=== PATIENT | female | born 1980 ===

== ENCOUNTER 2020-09-24 15:28 | Emergency (ER) | payer MEDICAID, SELFPAY ==
--- NOTE | ~2020-09-24 | CT_ITS ---
EXAMINATION: CT HEAD WITHOUT CONTRAST CLINICAL INFORMATION: Worsening seizures and multiple falls. COMPARISON: None TECHNIQUE: Contiguous axial imaging was performed from the skull base to vertex without intravenous administration of contrast. This CT examination was performed using dose optimization techniques as appropriate, variously including the following: *Automated exposure control *Adjustment of mA and/or kV according to patient size (this includes techniques or standardized protocols for targeted exams where dose is matched to indication/reason for exam; i.e. extremities or head) *Use of iterative reconstruction technique DLP: 653 mGy-cm FINDINGS: There is no evidence of acute intracranial hemorrhage or territorial infarction. No abnormal mass effect or midline shift is seen. Mccurdy to white matter differentiation is well preserved. No extra-axial fluid collections are identified. The ventricles are normal in size. There is no abnormal attenuation within the brain parenchyma. The osseous structures and soft tissues are normal. The mastoid air cells and visualized portions of the paranasal sinuses are well aerated. CT/CT head/brain wo con IMPRESSION: No acute intracranial process seen.
[2020-09-24 15:33] VITALS: BP 127/89; PULSE 117; RESP 22; TEMP 36.6; O2SAT 98; BMI 32.0
[2020-09-24 16:06] VITALS: BP 130/81; PULSE 111; RESP 18; O2SAT 97
--- NOTE | 2020-09-24 16:20 | ECG_ITS ---
Test Reason : SEIZURE Blood Pressure : / mmHG Vent. Rate : 108 BPM Atrial Rate : 108 BPM P-R Int : 118 ms QRS Dur : 078 ms QT Int : 358 ms P-R-T Axes : 050 049 045 degrees QTc Int : 479 ms Sinus tachycardia Otherwise normal ECG When compared with ECG of 07-MAY-2019 02:00, No significant change was found Referred By: Brooke Ku Electronically Signed By:ELADIO GILMAN MD
--- NOTE | 2020-09-24 16:23 | ED.SEIZURE ---
HPI - Seizure General Chief Complaint: Seizure Stated Complaint: seizure Time Seen by Provider: 09/24/20 15:57 Source: patient Mode of arrival: ambulatory Limitations: no limitations History of Present Illness HPI Narrative: Patient is brought by her PASSENGER SERVICE AGENT to the emergency room. Patient states that she is known to have epileptic seizures. Patient states she had a seizure a month ago, then had a 2nd seizure 1 week ago, but today she had 3 seizures. The PASSENGER SERVICE AGENT states that while patient was still seizing, he was able to give the patient 100 mg of oral Topamax. The PASSENGER SERVICE AGENT call the patient's neurologist who is at [facility], who recommended to bring the patient to the hospital for further evaluation. The patient states that she is compliant with her medication. At this time, the patient denies any other complaints MD complaint: seizure Seizure History: Yes (on Topamax) Place: familys house Related Data Allergies Allergy/AdvReac Type Severity Reaction Status Date / Time latex [LATEX] Allergy Severe RASH Unverified 01/24/20 17:08 baclofen [BACLOFEN] Allergy Unknown MOUTH Unverified 01/24/20 17:08 SWELLING bactrim Allergy Unknown Uncoded 02/21/19 00:00 Latex Allergy Unknown Uncoded 06/21/19 00:00 Latex Gloves Allergy Unknown Uncoded 02/21/19 00:00 Review of Systems Review of Systems: Constitutional : No Weight loss, No Fever, No Chills, No Night Sweats, No Fatigue, No Malaise ENT/Mouth : No Hearing loss, No Ear Pain, No Nasal Congestion, No Sinus Pain, No Hoarseness, No sore throat, No Rhinorrhea, No Swallowing Difficulty Eyes: No Eye Pain, No Swelling, No Redness, No Foreign Body, No Discharge, No Vision Changes Cardiovascular : No Chest Pain, No SOB, No Dyspnea on Exertion, No Orthopnea, No Edema, No Palpitations Respiratory : No Cough, No Sputum, No Wheezing, No Smoke Exposure, No Dyspnea Gastrointestinal : No Nausea, No Vomiting, No Diarrhea, No Constipation, No abdominal Pain, No Hematochezia, No Melena Genitourinary : no irregular bleeding, No Dysuria, No Urinary Frequency, No Hematuria, No Urinary Incontinence, No Urgency, No Flank Pain, No Urinary Flow Changes, No Hesitancy Musculoskeletal : No joint pain, No Myalgias, No Joint Swelling Skin : No Skin Lesions, No rash Neuro : No Weakness, No Numbness, No Paresthesias, patient complaining headache and reports 3 seizures today Psych : No Anxiety/Panic, No Depression, No SI/HI/AH/VH, No Social Issues, Heme/Lymph: No Bruising, No Bleeding,No Lymphadenopathy Endocrine : No Polyuria, No Polydipsia, No Temperature Intolerance PMFSH Past Medical History Medical History Anxiety Asthma Depression Seizure Social History Social History Alcohol intake: never Smoking Status: Never smoker Use of substances other than those prescribed or required for medical reasons: No Advance Directives: No Advance Directives Information Provided: Yes Patient : No Physical Exam Vital Signs: Vital Signs: Last Vital Signs Temp 98.0 F 09/24/20 17:51 Pulse 101 H 09/24/20 17:51 Resp 19 09/24/20 17:51 BP 149/90 H 09/24/20 17:51 Pulse Ox 99 09/24/20 17:51 Body Mass Index 32.0 Appearance: Alert. Oriented X3. No acute distress. Eyes: Pupils equal, round and reactive to light. ENT: Pharynx normal. Neck: Normal inspection. Neck supple. No lymph nodes noted. No crepitus CVS: Normal heart rate and rhythm. Pulses normal. Normal S1 and S2 Respiratory: No respiratory distress. Breath sounds normal. No Wheezing. No rales Abdomen: Soft and nontender. No rigidity. No distention. good BS x4 Skin: Skin warm and dry. Normal skin color. Normal skin turgor. Extremities: No lower extremity edema. No lower extremity edema. No Lacerations. No Rash Neuro: Oriented X 3. No motor deficit. No sensory deficit. Moving all extermities. No slurred speech. Course Course Course Narrative: I was called to the patient's room to evaluate her for a seizure she had in the room. Patient actually had a pseudo-seizure. Lasted less than a minute, woke up immediately, no postictal period. Given history of the patient was actually able to swallow medication while she was seizing, plus the above-mentioned event, and the white blood cell count and lactic acid being normal, it is more likely that the patient had a pseudo-seizure. This was discussed with the patient and her PASSENGER SERVICE AGENT. Patient will be discharged home with no changes in her medication. MDM - Seizure Lab Data Result diagrams: 09/24/20 16:38 09/24/20 16:38 Labs: Lab Results 09/24/20 09/24/20 09/24/20 Range/Units 16:38 16:38 16:38 WBC 8.7 (4.8-10.8) X10*3/uL RBC 4.58 (4.20-5.50) X10*6/uL Hgb 11.9 L (12.0-16.0) g/dl Hct 37.8 (37-47) % MCV 82.5 (80-98) fL MCH 26.0 L (27.0-33.0) pg MCHC 31.5 (31.0-35.0) g/dl RDW 13.3 (11.0-16.0) % Plt Count 293 (160-400) X10*3/uL MPV 9.6 (9.4-12.3) fL Immature Gran % (Auto) 0.2 (0.0-0.4) % Neut % (Auto) 48.9 (45-73) % Lymph % (Auto) 38.7 (20-40) % [place] % (Auto) 9.0 (2-11) % Eos % (Auto) 2.6 (0-4) % Baso % (Auto) 0.6 (0-2) % Lymph # (Auto) 3.4 (1.2-4.9) X10*3/uL [place] # (Auto) 0.8 (0.1-1.2) X10*3/uL Eos # (Auto) 0.2 (0.0-0.4) X10*3/uL Baso # (Auto) 0.1 (0.0-0.2) X10*3/uL Abs Immat Gran (auto) 0.02 (0.00-0.03) X10*3/uL Absolute Neuts (auto) 4.3 (2.0-8.3) X10*3/uL Absolute Nucleated RBC 0.000 (0.0-0.012) X10*3/uL Nucleated RBC % (auto) 0.0 (0.0-0.2) /100WBC Sodium 135 (135-145) mmol/L Potassium 4.0 (3.3-5.1) mmol/L Chloride 104 (96-108) mmol/L Carbon Dioxide 22 (22-29) mmol/L Anion Gap 13 (12-20) BUN 10 (9-16) mg/dL Creatinine 1.22 (0.5-1.4) mg/dL Estim Creat Clear Calc 58.6 Estimated GFR 48 Random Glucose 95 (60-115) mg/dL Lactic Acid (0.5-2.0) mmol/L Calcium 8.7 (8.4-10.2) mg/dL Total Bilirubin 0.3 Cancelled (0.0-1.0) mg/dL Direct Bilirubin < 0.2 Cancelled (0.0-0.5) mg/dL AST 20 Cancelled (5-31) U/L ALT 17 Cancelled (0-31) U/L Alkaline Phosphatase 139 H Cancelled (39-117) U/L Total Protein 7.6 Cancelled (6.5-8.0) g/dL Albumin 3.9 Cancelled (3.5-5.0) g/dL Lipase 14 Cancelled (8-78) U/L Urine Color Urine Appearance Urine pH (5.0-8.0) Ur Specific [place] (1.005-1.025) Urine Protein (NEG-TRACE) MG/DL Urine Glucose (UA) (NEG) MG/DL Urine Ketones (NEG) MG/DL Urine Blood (NEG) Urine Nitrite (NEG) Ur Leukocyte Esterase (NEG) Urine RBC (0) /HPF Urine WBC (0-4) /HPF Ur Squamous Epith Cells /LPF Urine Bacteria /LPF Urine Test (NEGATIVE) Urine Opiates Screen (Not Detect) Ur Barbiturates Screen (Not Detect) Ur Phencyclidine Scrn (Not Detect) Ur Amphetamines Screen (Not Detect) U Benzodiazepines Scrn (Not Detect) Urine Cocaine Screen (Not Detect) U Marijuana (THC) Screen (Not Detect) 09/24/20 09/24/20 09/24/20 Range/Units 16:38 16:46 16:46 WBC (4.8-10.8) X10*3/uL RBC (4.20-5.50) X10*6/uL Hgb (12.0-16.0) g/dl Hct (37-47) % MCV (80-98) fL MCH (27.0-33.0) pg MCHC (31.0-35.0) g/dl RDW (11.0-16.0) % Plt Count (160-400) X10*3/uL MPV (9.4-12.3) fL Immature Gran % (Auto) (0.0-0.4) % Neut % (Auto) (45-73) % Lymph % (Auto) (20-40) % [place] % (Auto) (2-11) % Eos % (Auto) (0-4) % Baso % (Auto) (0-2) % Lymph # (Auto) (1.2-4.9) X10*3/uL [place] # (Auto) (0.1-1.2) X10*3/uL Eos # (Auto) (0.0-0.4) X10*3/uL Baso # (Auto) (0.0-0.2) X10*3/uL Abs Immat Gran (auto) (0.00-0.03) X10*3/uL Absolute Neuts (auto) (2.0-8.3) X10*3/uL Absolute Nucleated RBC (0.0-0.012) X10*3/uL Nucleated RBC % (auto) (0.0-0.2) /100WBC Sodium (135-145) mmol/L Potassium (3.3-5.1) mmol/L Chloride (96-108) mmol/L Carbon Dioxide (22-29) mmol/L Anion Gap (12-20) BUN (9-16) mg/dL Creatinine (0.5-1.4) mg/dL Estim Creat Clear Calc Estimated GFR Random Glucose (60-115) mg/dL Lactic Acid 1.7 (0.5-2.0) mmol/L Calcium (8.4-10.2) mg/dL Total Bilirubin (0.0-1.0) mg/dL Direct Bilirubin (0.0-0.5) mg/dL AST (5-31) U/L ALT (0-31) U/L Alkaline Phosphatase (39-117) U/L Total Protein (6.5-8.0) g/dL Albumin (3.5-5.0) g/dL Lipase (8-78) U/L Urine Color YELLOW Urine Appearance CLEAR Urine pH 8.0 (5.0-8.0) Ur Specific [place] 1.015 (1.005-1.025) Urine Protein NEG (NEG-TRACE) MG/DL Urine Glucose (UA) NEG (NEG) MG/DL Urine Ketones NEG (NEG) MG/DL Urine Blood NEG (NEG) Urine Nitrite NEG (NEG) Ur Leukocyte Esterase 1+ H (NEG) Urine RBC 0-2 (0) /HPF Urine WBC 5-9 H (0-4) /HPF Ur Squamous Epith Cells 2+ /LPF Urine Bacteria TRACE /LPF Urine Test NEGATIVE (NEGATIVE) Urine Opiates Screen (Not Detect) Ur Barbiturates Screen (Not Detect) Ur Phencyclidine Scrn (Not Detect) Ur Amphetamines Screen (Not Detect) U Benzodiazepines Scrn (Not Detect) Urine Cocaine Screen (Not Detect) U Marijuana (THC) Screen (Not Detect) 09/24/20 Range/Units 16:46 WBC (4.8-10.8) X10*3/uL RBC (4.20-5.50) X10*6/uL Hgb (12.0-16.0) g/dl Hct (37-47) % MCV (80-98) fL MCH (27.0-33.0) pg MCHC (31.0-35.0) g/dl RDW (11.0-16.0) % Plt Count (160-400) X10*3/uL MPV (9.4-12.3) fL Immature Gran % (Auto) (0.0-0.4) % Neut % (Auto) (45-73) % Lymph % (Auto) (20-40) % [place] % (Auto) (2-11) % Eos % (Auto) (0-4) % Baso % (Auto) (0-2) % Lymph # (Auto) (1.2-4.9) X10*3/uL [place] # (Auto) (0.1-1.2) X10*3/uL Eos # (Auto) (0.0-0.4) X10*3/uL Baso # (Auto) (0.0-0.2) X10*3/uL Abs Immat Gran (auto) (0.00-0.03) X10*3/uL Absolute Neuts (auto) (2.0-8.3) X10*3/uL Absolute Nucleated RBC (0.0-0.012) X10*3/uL Nucleated RBC % (auto) (0.0-0.2) /100WBC Sodium (135-145) mmol/L Potassium (3.3-5.1) mmol/L Chloride (96-108) mmol/L Carbon Dioxide (22-29) mmol/L Anion Gap (12-20) BUN (9-16) mg/dL Creatinine (0.5-1.4) mg/dL Estim Creat Clear Calc Estimated GFR Random Glucose (60-115) mg/dL Lactic Acid (0.5-2.0) mmol/L Calcium (8.4-10.2) mg/dL Total Bilirubin (0.0-1.0) mg/dL Direct Bilirubin (0.0-0.5) mg/dL AST (5-31) U/L ALT (0-31) U/L Alkaline Phosphatase (39-117) U/L Total Protein (6.5-8.0) g/dL Albumin (3.5-5.0) g/dL Lipase (8-78) U/L Urine Color Urine Appearance Urine pH (5.0-8.0) Ur Specific [place] (1.005-1.025) Urine Protein (NEG-TRACE) MG/DL Urine Glucose (UA) (NEG) MG/DL Urine Ketones (NEG) MG/DL Urine Blood (NEG) Urine Nitrite (NEG) Ur Leukocyte Esterase (NEG) Urine RBC (0) /HPF Urine WBC (0-4) /HPF Ur Squamous Epith Cells /LPF Urine Bacteria /LPF Urine Test (NEGATIVE) Urine Opiates Screen Not Detected (Not Detect) Ur Barbiturates Screen Not Detected (Not Detect) Ur Phencyclidine Scrn Not Detected (Not Detect) Ur Amphetamines Screen Not Detected (Not Detect) U Benzodiazepines Scrn Not Detected (Not Detect) Urine Cocaine Screen POSITIVE H (Not Detect) U Marijuana (THC) Screen Not Detected (Not Detect) ECG Data Attestation: I personally reviewed and interpreted this ECG as follows: (Sinus tachycardia, heart rate 108, no ST segment depression or elevation, no T-wave inversion) Discharge Plan Discharge Clinical Impression: Pseudoseizures Patient Disposition: Home, Self-Care Instructions: Recurrent Seizures in Adults (ED) Additional Instructions: Please follow-up with your primary care physician tomorrow. If you have any worsening or new symptoms, please return to the emergency room or call 911
[2020-09-24 16:29] VITALS: BP 125/74; PULSE 106; RESP 18; TEMP 37.1; O2SAT 99
[2020-09-24 16:43] LABS: MANUAL DIFF FLAG NO
[2020-09-24 16:47] LABS: Basophils Absolute Auto 0.1 X10*3/uL (0.0-0.2); Basophils Percent Auto 0.6 % (0-2); Eosinophils Absolute Auto 0.2 X10*3/uL (0.0-0.4); Eosinophils Percent Auto 2.6 % (0-4); Hematocrit 37.8 % (37-47); Hemoglobin 11.9 g/dl (12.0-16.0); Imm Gran Abs Auto 0.02 X10*3/uL (0.00-0.03); Imm Gran Pct Auto 0.2 % (0.0-0.4); Lymphocytes Absolute Auto 3.4 X10*3/uL (1.2-4.9); Lymphocytes Percent Auto 38.7 % (20-40); Mean Corpuscular HGB Conc 31.5 g/dl (31.0-35.0); Mean Corpuscular Volume 82.5 fL (80-98); Mean Platelet Volume 9.6 fL (9.4-12.3); Monocytes Absolute Auto 0.8 X10*3/uL (0.1-1.2); Neutrophils Absolute Auto 4.3 X10*3/uL (2.0-8.3); Neutrophils Percent Auto 48.9 % (45-73); Platelet Count 293 X10*3/uL (160-400); Red Blood Count 4.58 X10*6/uL (4.20-5.50); Red Cell Distribution Width 13.3 % (11.0-16.0); White Blood Count 8.7 X10*3/uL (4.8-10.8)
[2020-09-24 16:54] LABS: Glucose Urine UA NEG (NEG); Leukocyte Esterase Urine 1+ (NEG); Nitrite Urine NEG (NEG); Specific Gravity - Urine 1.015 (1.005-1.025); UACC Culture Trigger YES; Urine Blood NEG (NEG); Urine Ketones NEG (NEG); Urine Protein NEG (NEG-TRACE)
[2020-09-24 16:56] LABS: UPreg QC Valid YES; Urine Pregnancy NEGATIVE (NEGATIVE)
[2020-09-24 16:57] LABS: Appearance Urine CLEAR; Color Urine YELLOW
[2020-09-24 17:11] LABS: Bacteria Urine TRACE /LPF; RBC Urine 0-2 /HPF (0); Squamous Epithelial Cell Urine 2+ /LPF
[2020-09-24 17:16] LABS: Lactic Acid 1.7 mmol/L (0.5-2.0)
[2020-09-24 17:21] LABS: Amphetamine Screen Urine Not Detected (Not Detect); Barbiturates, Urine Not Detected (Not Detect); Benzodiazepines Screen Urine Not Detected (Not Detect); Cannabinoid Screen Urine Not Detected (Not Detect); Cocaine Screen Urine POSITIVE (Not Detect); Opiate Screen Urine Not Detected (Not Detect); Phencyclidine Screen Urine Not Detected (Not Detect)
[2020-09-24 17:23] LABS: Alanine Aminotransferase 17 U/L (0-31); Albumin Level 3.9 g/dL (3.5-5.0); Alkaline Phosphatase 139 U/L (39-117); Anion Gap 13 (12-20); Aspartate Amino Transferase 20 U/L (5-31); Bilirubin Direct < 0.2 mg/dL (0.0-0.5); Bilirubin Total 0.3 mg/dL (0.0-1.0); Blood Urea Nitrogen 10 mg/dL (9-16); Calcium 8.7 mg/dL (8.4-10.2); Carbon Dioxide 22 mmol/L (22-29); Chloride 104 mmol/L (96-108); Creatinine Clr Calc Pharmacy 58.6; Estimated Glomerular Filt Rate 48; Glucose Random 95 mg/dL (60-115); Lipase 14 U/L (8-78); Sodium 135 mmol/L (135-145); Total Protein 7.6 g/dL (6.5-8.0)
--- NOTE | 2020-09-24 17:40 | PC.NURSE ---
Visitor at bedside called this RN to bedside as pt experienced aura, upon entering room, pt awake but appeared drowsy. Pt able to respond to this RN during episode. Pt was suctioned after drooling noted from side of mouth. Dr Ku called to bedside to assess. Pt reassured. Pt does not appear postictal at this time. Awaiting CT scan. Seizure precautions remain in place
[2020-09-24 17:51] VITALS: BP 149/90; PULSE 101; RESP 19; TEMP 36.7; O2SAT 99
--- NOTE | 2020-09-24 19:21 | PC.NURSE ---
Patient requested Tylenol for headache, ordered medication. When this RN entered the room to medicate patient, pt was agitated, states I wanna leave, I've been waiting forever for pain medication for my headache . This RN explained that she just began her shift, and the medication was obtained within minutes of being ordered/notified of headache. Pt demanding to have IV access removed. notified, spoke with patient at bedside. Pt removed small engine mechanic from herself, and is now refusing the ordered/previously requested Tylenol. Labs and imaging within normal limits, being discharged home.
[2020-09-27 23:37] LABS: Topiramate 4.6 mcg/mL (see note)
== END 2020-09-24 19:33 | disposition home or self-care (01) ==
PROVIDERS: Emergency Provider Emergency Medicine; PCP Internal Medicine Geriatric Medicine
DX: R56.9 Unspecified convulsions (principal); Z79.899 Other long term (current) drug therapy
CPT/HCPCS: 36415; 70450; 80048; 80076; 80201; 80307; 81001; 81003; 81025; 83605; 83690; 85025; 87086; 93005; 99284

== ENCOUNTER 2020-12-11 08:46 | Outpatient (REF) | payer MEDICAID, SELFPAY ==
--- NOTE | 2020-12-11 | EMG_ITS ---
Bilateral median and ulnar motor and sensory studies were performed. Bilateral radial sensory study was performed and paraspinal muscles were tested. IMPRESSION: 1. Mild left median neuropathy across carpal tunnel, the right was within normal range. 2. Mild left ulnar neuropathy across cubital tunnel. MD DEXTER Kimball/JENNIFER / [id number]
== END 2020-12-11 08:47 | disposition home or self-care (01) ==
LOC: HO.NEURO 08:46
PROVIDERS: Visit Provider Emergency Medicine
DX: M25.531 Pain in right wrist (principal); M25.532 Pain in left wrist
CPT/HCPCS: 95886; 95911

== ENCOUNTER 2021-03-23 23:38 | Emergency (ER) | payer OTHER, MEDICAID, SELFPAY ==
[2021-03-23 23:41] VITALS: BP 145/89; PULSE 120; RESP 15; TEMP 36.6; O2SAT 97
== END 2021-03-24 01:46 | disposition left against medical advice (07) ==
PROVIDERS: Emergency Provider Emergency Medicine
DX: Z04.1 Encounter for examination and observation following transport accident (principal)
CPT/HCPCS: 99282; 99283

== ENCOUNTER 2021-10-23 20:58 | Emergency (ER) | payer OTHER, SELFPAY ==
[2021-10-23 21:02] VITALS: BP 153/87; PULSE 94; RESP 16; TEMP 36.5; O2SAT 98; BMI 30.9
[2021-10-23 21:13] VITALS: BP 126/71; PULSE 81; RESP 16; TEMP 36.9; O2SAT 99
[2021-10-23 22:00] VITALS: BP 130/80; PULSE 72; RESP 16; TEMP 36.9; O2SAT 100
--- NOTE | 2021-10-23 22:07 | ED.NAVMDI ---
HPI - Nausea/Vomiting/Diarrhea General Chief complaint: Nausea/Vomiting/Diarrhea Stated complaint: n/v/d x5 days; back pain Time Seen by Provider: 10/23/21 21:11 Source: patient Mode of arrival: ambulatory Limitations: no limitations History of Present Illness HPI Narrative: 41-year-old female with a history of anxiety, asthma, depression, seizure disorder on Topamax, gastric bypass [address] Cherry here with complaints 5 days of vomiting, diarrhea, lower back pain. Patient reports 3-4 episodes of non-bloody diarrhea daily. >10 episodes of vomiting which is NBNB. no abdominal pain, fevers, chills, urinary symptoms. No recent travel or sick contact. No recent antibiotic use. Associated nausea: Yes Related Data Previous Rx's Medication Instructions Recorded ondansetron 4 mg disintegrating 4 mg PO Q6H PRN nausea and 10/23/21 tablet vomiting #14 tabs Allergies Allergy/AdvReac Type Severity Reaction Status Date / Time latex [LATEX] Allergy Severe RASH Verified 03/23/21 23:54 baclofen [BACLOFEN] Allergy Unknown MOUTH Unverified 03/23/21 23:54 SWELLING bactrim Allergy Unknown Unknown Uncoded 03/23/21 23:54 Latex Allergy Unknown Unknown Uncoded 03/23/21 23:54 Latex Gloves Allergy Unknown Unknown Uncoded 03/23/21 23:54 Review of Systems Review of Systems: Yes all other systems are reviewed and are negative Constitutional: Constitutional: Reports no additional constitutional complaints, Denies body ache(s), Denies chills, Denies fever(s), Denies headache(s) and Denies weakness Eyes: Eyes: Reports no additional eye complaints and Denies change in vision ENT: Reports system reviewed and no additional complaints, except as documented, Denies dizziness, Denies headache(s), Denies nasal congestion, Denies nasal discharge and Denies neck pain Cardiovascular: Cardiovascular: Reports no additional cardiovascular complaints, Denies chest pain, Denies leg edema and Denies dyspnea Respiratory: Respiratory: Reports no additional respiratory complaints, Denies cough and Denies dyspnea Gastrointestinal: Gastrointestinal: Reports no additional gastrointestinal complaints, Denies abdominal pain, Reports diarrhea, Reports nausea and Reports vomiting Genitourinary: Genitourinary: Reports no additional female genitourinary complaints and Denies urinary incontinence Musculoskeletal: Musculoskeletal: Reports no additional musculoskeletal complaints, Reports back pain, Denies arthralgias, Denies joint swelling, Denies neck pain, Denies numbness and Denies tingling Integumentary/Breasts: Skin/Breast: Reports system reviewed and no additional complaints, except as docu and Denies rash Neurologic: Reports system reviewed and no additional complaints, except as documented, Denies Abnormal speech present, Denies dizziness, Denies headache(s), Denies numbness, Denies tingling and Denies weakness PMF Past Medical History Attestation statement: The following information was validated with the patient. Source: old records reviewed and nursing notes reviewed Medical History Anxiety Asthma Depression Seizure Social History Social History Alcohol intake: never Advance Directives: No Advance Directives Information Provided: No Physical Exam Vital Signs: Vital Signs: Last Vital Signs Temp 98.0 F 10/24/21 00:15 Pulse 74 10/24/21 00:15 Resp 16 10/24/21 00:15 BP 131/69 10/24/21 00:15 Pulse Ox 100 10/24/21 00:15 O2 Del Method 10/24/21 00:15 BMI result Body Mass Index 30.9 Const: General: cooperative, healthy appearing, comfortable and no acute distress Orientation/consciousness: patient oriented x3 Limitations: no limitations HEENT: Head: Yes normal to inspection Ears: hearing grossly normal bilaterally General nose exam: Normal external nose present Face and sinus: Yes normal facial exam Mouth: Normal oral and palatal mucosa present Throat: Yes posterior oropharynx normal Eyes: General: appearance normal, both eyes and all related structures Pupils: Equal, round and reactive pupils present Neck: Neck: Yes normal visual inspection Chest: Chest palpation & inspection: normal inspection of the chest Resp: Effort & Inspection: normal respiratory effort Auscultation: clear to auscultation bilaterally Cardio: Rate: regular rate Rhythm: regular rhythm Peripheral pulses: Peripheral pulses 2+ throughout GI: Inspection: Yes normal to inspection Palpation (GI): Soft to palpation and nontender Auscultation: normal bowel sounds Back/Spine/Pelvis: Thoracic/Lumbar Spine: thoracic and lumbar spine normal to inspection Skin: General skin exam: no rashes or lesions noted Neuro: General: patient oriented x3, no focal motor deficits and normal sensation to monofilament Cranial nerves: Yes Equal, round and reactive pupils present Cognition (Neuro): normal cognition Speech: No Abnormal speech present Gait exam (Neuro): Normal gait present Motor exam (neuro): 5/5 motor strength present throughout Extrem: General: Yes normal to inspection, Yes no pedal edema and Yes no calf tenderness Course Course Course Narrative: 0030- labs are unremarkable. UA shows no signs of infection. COVID and flu testing are negative. Patient tells me her nausea is resolved after some Zofran and she is tolerating p.o. silva ana paula. Her pain in her lower back is gone with 1 dose of Toradol. Likely viral gastroenteritis. Will discharge home with sublingual Zofran. Reviewed worrisome signs and symptoms of when to return to the emergency department such as abdominal pain, intractable vomiting, fever. Patient has NO abdominal pain as a complaint. MDM - Nausea/Vomiting/Diarrhea MDM Narrative Medical decision making narrative: 41-year-old female here with reports of nausea, vomiting, diarrhea and lower back pain for 5 days. No focal abdominal pain on exam. Vitals are stable. Will check labs, UA, COVID and flu testing. Will place PIV and give IV fluids, antiemetic, pain control. Differential Diagnosis Differential diagnosis: Likely gastroenteritis Medical Records Attestation: I reviewed the patient's medical records. Lab Data Attestation: I reviewed the patient's lab results. Result diagrams: 10/23/21 22:00 10/23/21 22:00 Labs: Lab Results 10/23/21 10/23/21 10/23/21 Range/Units 22:00 22:00 22:00 WBC 8.6 (4.8-10.8) X10*3/uL RBC 4.64 (4.20-5.50) X10*6/uL Hgb 12.0 (12.0-16.0) g/dl Hct 37.9 (37.0-47.0) % MCV 81.7 (80.0-98.0) fL MCH 25.9 L (27.0-33.0) pg MCHC 31.7 (31.0-35.0) g/dl RDW 13.7 (11.0-16.0) % Plt Count 286 (160-400) X10*3/uL MPV 10.4 (9.4-12.3) fL Immature Gran % (Auto) 0.3 (0.0-0.4) % Neut % (Auto) 51.0 (45-73) % Lymph % (Auto) 35.4 (20-40) % [place] % (Auto) 8.9 (2-11) % Eos % (Auto) 3.7 (0-4) % Baso % (Auto) 0.7 (0-2) % Lymph # (Auto) 3.1 (1.2-4.9) X10*3/uL [place] # (Auto) 0.8 (0.1-1.2) X10*3/uL Eos # (Auto) 0.3 (0.0-0.4) X10*3/uL Baso # (Auto) 0.1 (0.0-0.2) X10*3/uL Abs Immat Gran (auto) 0.03 (0.00-0.03) X10*3/uL Absolute Neuts (auto) 4.4 (2.0-8.3) x10*3/uL Absolute Nucleated RBC 0.000 (0.0-0.012) X10*3/uL Nucleated RBC % (auto) 0.0 (0.0-0.2) /100WBC Sodium (135-145) mmol/L Potassium (3.3-5.1) mmol/L Chloride (96-108) mmol/L Carbon Dioxide (22-29) mmol/L Anion Gap (12-20) BUN (9-16) mg/dL Creatinine (0.5-1.4) mg/dL Estim Creat Clear Calc Estimated GFR Random Glucose (60-115) mg/dL Calcium (8.4-10.2) mg/dL Total Bilirubin (0.0-1.0) mg/dL Direct Bilirubin (0.0-0.5) mg/dL AST (5-31) U/L ALT (0-31) U/L Alkaline Phosphatase (39-117) U/L Total Protein (6.5-8.0) g/dL Albumin (3.5-5.0) g/dL Urine Color Urine Appearance Urine pH (5.0-8.0) Ur Specific [place] (1.005-1.025) Urine Protein (NEG-TRACE) MG/DL Urine Glucose (UA) (NEG) MG/DL Urine Ketones (NEG) MG/DL Urine Blood (NEG) Urine Nitrite (NEG) Ur Leukocyte Esterase (NEG) Urine Test (NEGATIVE) COVID-19 (RC) Negative (Negative) COVID-19 Clin Com See Note Influenza Type A (ELIZABETH) Negative (Negative) Influenza Type B (EL[facility]ETH) Negative (Negative) Influenza A & B Note See Note 10/23/21 10/23/21 10/23/21 Range/Units 22:00 23:01 23:01 WBC (4.8-10.8) X10*3/uL RBC (4.20-5.50) X10*6/uL Hgb (12.0-16.0) g/dl Hct (37.0-47.0) % MCV (80.0-98.0) fL MCH (27.0-33.0) pg MCHC (31.0-35.0) g/dl RDW (11.0-16.0) % Plt Count (160-400) X10*3/uL MPV (9.4-12.3) fL Immature Gran % (Auto) (0.0-0.4) % Neut % (Auto) (45-73) % Lymph % (Auto) (20-40) % [place] % (Auto) (2-11) % Eos % (Auto) (0-4) % Baso % (Auto) (0-2) % Lymph # (Auto) (1.2-4.9) X10*3/uL [place] # (Auto) (0.1-1.2) X10*3/uL Eos # (Auto) (0.0-0.4) X10*3/uL Baso # (Auto) (0.0-0.2) X10*3/uL Abs Immat Gran (auto) (0.00-0.03) X10*3/uL Absolute Neuts (auto) (2.0-8.3) x10*3/uL Absolute Nucleated RBC (0.0-0.012) X10*3/uL Nucleated RBC % (auto) (0.0-0.2) /100WBC Sodium 138 (135-145) mmol/L Potassium 3.9 (3.3-5.1) mmol/L Chloride 105 (96-108) mmol/L Carbon Dioxide 27 (22-29) mmol/L Anion Gap 10 L (12-20) BUN 12 (9-16) mg/dL Creatinine 0.95 (0.5-1.4) mg/dL Estim Creat Clear Calc 78.9 Estimated GFR > 60 Random Glucose 78 (60-115) mg/dL Calcium 8.8 (8.4-10.2) mg/dL Total Bilirubin 0.3 (0.0-1.0) mg/dL Direct Bilirubin < 0.2 (0.0-0.5) mg/dL AST 14 (5-31) U/L ALT 11 (0-31) U/L Alkaline Phosphatase 113 (39-117) U/L Total Protein 7.1 (6.5-8.0) g/dL Albumin 3.6 (3.5-5.0) g/dL Urine Color YELLOW Urine Appearance CLEAR Urine pH 7.0 (5.0-8.0) Ur Specific [place] 1.020 (1.005-1.025) Urine Protein NEG (NEG-TRACE) MG/DL Urine Glucose (UA) NEG (NEG) MG/DL Urine Ketones NEG (NEG) MG/DL Urine Blood NEG (NEG) Urine Nitrite NEG (NEG) Ur Leukocyte Esterase NEG (NEG) Urine Test NEGATIVE (NEGATIVE) COVID-19 (RC) (Negative) COVID-19 Clin Com Influenza Type A (EL[facility]ABETH) (Negative) Influenza Type B ([facility]) (Negative) Influenza A & B Note Discharge Plan Discharge Clinical Impression: Gastroenteritis Patient Disposition: Home, Self-Care Instructions: Gastroenteritis (ED) Additional Instructions: lab work and urine testing are reassuring testing for flu and COVID are negative start with clear liquids and advance diet as tolerated Prescriptions: New ondansetron 4 mg tablet,disintegrating 4 mg PO Q6H PRN (Reason: nausea and vomiting) Qty: 14 0RF Referrals: Mane Greenfield MD [Primary Care Provider] - 1 week Print Language: Kenyan
[2021-10-23 22:08] LABS: MANUAL DIFF FLAG NO
[2021-10-23] MEDS: ondansetron HCL 4 MG/2 ML VIAL IVPUSH (22:08)
[2021-10-23] MEDS: 0.9 % Sodium Chloride 1,000 ML 999 ML IV (22:08)
[2021-10-23] MEDS: Ketorolac Tromethamine 30 MG/ML VIAL IVPUSH (22:11)
[2021-10-23 22:17] LABS: Basophils Absolute Auto 0.1 X10*3/uL (0.0-0.2); Basophils Percent Auto 0.7 % (0-2); Eosinophils Absolute Auto 0.3 X10*3/uL (0.0-0.4); Eosinophils Percent Auto 3.7 % (0-4); Hematocrit 37.9 % (37.0-47.0); Imm Gran Abs Auto 0.03 X10*3/uL (0.00-0.03); Imm Gran Pct Auto 0.3 % (0.0-0.4); Lymphocytes Absolute Auto 3.1 X10*3/uL (1.2-4.9); Lymphocytes Percent Auto 35.4 % (20-40); Mean Corpuscular HGB Conc 31.7 g/dl (31.0-35.0); Mean Corpuscular Hemoglobin 25.9 pg (27.0-33.0); Mean Corpuscular Volume 81.7 fL (80.0-98.0); Mean Platelet Volume 10.4 fL (9.4-12.3); Monocytes Absolute Auto 0.8 X10*3/uL (0.1-1.2); Monocytes Percent Auto 8.9 % (2-11); Neutrophils Absolute Auto 4.4 x10*3/uL (2.0-8.3); Platelet Count 286 X10*3/uL (160-400); Red Blood Count 4.64 X10*6/uL (4.20-5.50); Red Cell Distribution Width 13.7 % (11.0-16.0); White Blood Count 8.6 X10*3/uL (4.8-10.8)
[2021-10-23 22:30] LABS: Alanine Aminotransferase 11 U/L (0-31); Albumin Level 3.6 g/dL (3.5-5.0); Alkaline Phosphatase 113 U/L (39-117); Anion Gap 10 (12-20); Aspartate Amino Transferase 14 U/L (5-31); Bilirubin Direct < 0.2 mg/dL (0.0-0.5); Bilirubin Total 0.3 mg/dL (0.0-1.0); Blood Urea Nitrogen 12 mg/dL (9-16); Calcium 8.8 mg/dL (8.4-10.2); Carbon Dioxide 27 mmol/L (22-29); Chloride 105 mmol/L (96-108); Creatinine Clr Calc Pharmacy 78.9; Estimated Glomerular Filt Rate > 60; Glucose Random 78 mg/dL (60-115); Potassium 3.9 mmol/L (3.3-5.1); Sodium 138 mmol/L (135-145); Total Protein 7.1 g/dL (6.5-8.0)
[2021-10-23 22:40] LABS: COVID-19 Test Negative (Negative)
[2021-10-23 22:41] LABS: IDNOW Serial# 55D5AD1C; Influenza A Negative (Negative); Influenza B2 Negative (Negative)
[2021-10-23 23:07] LABS: Appearance Urine CLEAR; Color Urine YELLOW; Glucose Urine UA NEG (NEG); Leukocyte Esterase Urine NEG (NEG); Nitrite Urine NEG (NEG); Urine Blood NEG (NEG); Urine Ketones NEG (NEG); Urine Protein NEG (NEG-TRACE)
[2021-10-23 23:09] LABS: UPreg QC Valid YES; Urine Pregnancy NEGATIVE (NEGATIVE)
[2021-10-24 00:15] VITALS: BP 131/69; PULSE 74; RESP 16; TEMP 36.7; O2SAT 100
== END 2021-10-24 00:29 | disposition home or self-care (01) ==
PROVIDERS: Nurse Practitioner Family; Emergency Provider Emergency Medicine; PCP Internal Medicine Geriatric Medicine
DX: K52.9 Noninfective gastroenteritis and colitis, unspecified (principal); M54.50 Low back pain, unspecified; J45.909 Unspecified asthma, uncomplicated; G40.909 Epilepsy, unspecified, not intractable, without status epilepticus; Z79.899 Other long term (current) drug therapy; Z98.84 Bariatric surgery status; Z20.822 Contact with and (suspected) exposure to COVID-19
CPT/HCPCS: 36415; 80048; 80076; 81003; 81025; 85025; 87502; 87635; 96361; 96374; 96375; 99284; J1885; J2405

== ENCOUNTER 2022-02-01 12:19 | Outpatient (REF) | payer MEDICAID, SELFPAY ==
--- NOTE | ~2022-02-01 | XR_ITS ---
EXAMINATION: XR ANKLE, RIGHT CLINICAL INFORMATION: Sprain COMPARISON: None TECHNIQUE: AP, lateral, and mortise views of the right ankle. FINDINGS: The bones and soft tissues are normal. No fracture. Alignment is anatomic. Joint spaces are maintained. No joint effusion. Calcaneal spur at the Achilles tendon insertion. XR/XR ankle RT min 3V IMPRESSION: Normal right ankle. Calcaneal spur.
== END 2022-02-01 12:20 | disposition home or self-care (01) ==
LOC: HO.XRAY 12:19
PROVIDERS: Absent Provider Internal Medicine Geriatric Medicine; PCP Internal Medicine Geriatric Medicine; Visit Provider Emergency Medicine
DX: S93.401A Sprain of unspecified ligament of right ankle, initial encounter (principal)
CPT/HCPCS: 73610

== ENCOUNTER 2022-03-15 08:24 | Outpatient (REF) | payer MEDICAID, SELFPAY ==
--- NOTE | ~2022-03-15 | MM_ITS ---
EXAMINATION: MM SCREENING DIGITAL BREAST TOMOSYNTHESIS, BILATERAL CLINICAL INFORMATION: Screening. Asymptomatic. Age 41. No prior breast imaging. No known family history breast cancer. COMPARISON: None (current study represents initial baseline exam). TECHNIQUE: Digital breast tomosynthesis is performed in both the craniocaudal and mediolateral oblique views along with computer-aided detection (CAD). Synthesized 2D images are generated from the tomosynthesis. FINDINGS: There are scattered areas of fibroglandular density (ACR BI-RADS breast composition Category b). Breast tissue composition borders on predominantly fatty. Background stromal markings are normal. There are no significant masses, abnormal calcifications, or other abnormalities. The axilla and skin contours are unremarkable. MM/MM tomosynthesis screening BI IMPRESSION: No mammographic evidence of malignancy. ASSESSMENT: BI-RADS 1: Negative RECOMMENDATION: Routine annual mammography screening. This patient's information was entered into a reminder system with a target due date for their next mammogram.
== END 2022-03-15 08:25 | disposition home or self-care (01) ==
LOC: HO.MAMMO 08:24
PROVIDERS: Visit Provider Internal Medicine Geriatric Medicine
DX: Z12.31 Encounter for screening mammogram for malignant neoplasm of breast (principal)
CPT/HCPCS: 77063; 77067

== ENCOUNTER 2022-09-15 09:04 | Outpatient (REF) | payer MEDICAID, SELFPAY ==
--- NOTE | ~2022-09-15 | XR_ITS ---
EXAMINATION: LEFT SHOULDER, LEFT WRIST, LEFT HAND, LEFT KNEE CLINICAL INFORMATION: Fall last Tuesday, one week ago COMPARISON: None available. TECHNIQUE: 4 views left shoulder, 4 views left wrist, 3 views left hand, 4 views left knee FINDINGS: Some mild degenerative changes in the knee with some narrowing of the patellofemoral compartment and a superior patellar osteophyte. Small osteophytes seen arising from the lateral tibial plateau. No chondrocalcinosis. 4 exams are otherwise unremarkable with no abnormality seen in the shoulder hand and wrist. XR/XR knee LT 3V IMPRESSION: Mild degenerative changes in the knee. No evidence of an acute osseous injury.
--- NOTE | ~2022-09-15 | XR_ITS ---
EXAMINATION: LEFT SHOULDER, LEFT WRIST, LEFT HAND, LEFT KNEE CLINICAL INFORMATION: Fall last Tuesday, one week ago COMPARISON: None available. TECHNIQUE: 4 views left shoulder, 4 views left wrist, 3 views left hand, 4 views left knee FINDINGS: Some mild degenerative changes in the knee with some narrowing of the patellofemoral compartment and a superior patellar osteophyte. Small osteophytes seen arising from the lateral tibial plateau. No chondrocalcinosis. 4 exams are otherwise unremarkable with no abnormality seen in the shoulder hand and wrist. XR/XR hand LT min 3V IMPRESSION: Mild degenerative changes in the knee. No evidence of an acute osseous injury.
--- NOTE | ~2022-09-15 | XR_ITS ---
EXAMINATION: LEFT SHOULDER, LEFT WRIST, LEFT HAND, LEFT KNEE CLINICAL INFORMATION: Fall last Tuesday, one week ago COMPARISON: None available. TECHNIQUE: 4 views left shoulder, 4 views left wrist, 3 views left hand, 4 views left knee FINDINGS: Some mild degenerative changes in the knee with some narrowing of the patellofemoral compartment and a superior patellar osteophyte. Small osteophytes seen arising from the lateral tibial plateau. No chondrocalcinosis. 4 exams are otherwise unremarkable with no abnormality seen in the shoulder hand and wrist. XR/XR wrist LT min 3V IMPRESSION: Mild degenerative changes in the knee. No evidence of an acute osseous injury.
--- NOTE | ~2022-09-15 | XR_ITS ---
EXAMINATION: LEFT SHOULDER, LEFT WRIST, LEFT HAND, LEFT KNEE CLINICAL INFORMATION: Fall last Tuesday, one week ago COMPARISON: None available. TECHNIQUE: 4 views left shoulder, 4 views left wrist, 3 views left hand, 4 views left knee FINDINGS: Some mild degenerative changes in the knee with some narrowing of the patellofemoral compartment and a superior patellar osteophyte. Small osteophytes seen arising from the lateral tibial plateau. No chondrocalcinosis. 4 exams are otherwise unremarkable with no abnormality seen in the shoulder hand and wrist. XR/XR shoulder LT min 2V IMPRESSION: Mild degenerative changes in the knee. No evidence of an acute osseous injury.
== END 2022-09-15 09:05 | disposition home or self-care (01) ==
LOC: HO.HHCX 09:04
PROVIDERS: Visit Provider Emergency Medicine
DX: M79.642 Pain in left hand (principal); M25.512 Pain in left shoulder; M25.562 Pain in left knee; Z91.81 History of falling
CPT/HCPCS: 73030; 73110; 73130; 73562

== ENCOUNTER 2022-10-02 20:30 | Emergency (ER) | payer MEDICAID, SELFPAY ==
[2022-10-02 20:42] VITALS: BP 126/79; PULSE 86; RESP 14; TEMP 37.2; O2SAT 99; BMI 32.7
--- NOTE | 2022-10-02 21:11 | ED.DENTAL ---
HPI - Dental/Oral General Chief complaint: Dental/Oral Stated complaint: mouth and gums swollen Time Seen by Provider: 10/02/22 20:55 Source: patient, family and seismic interpreter Mode of arrival: ambulatory Limitations: no limitations History of Present Illness HPI Narrative: 42-year-old female came in for evaluation after she broke her upper left incisor tooth, patient is complaining of gum swelling and pain. Related Data Previous Rx's Medication Instructions Recorded ondansetron 4 mg disintegrating 4 mg PO Q6H PRN nausea and 10/23/21 tablet vomiting #14 tabs amoxicillin 500 mg tablet 500 mg PO BID #14 tabs 10/02/22 oxycodone 5 mg tablet 5 mg PO BID PRN pain #7 tabs 10/02/22 Allergies Allergy/AdvReac Type Severity Reaction Status Date / Time latex [LATEX] Allergy Severe RASH Verified 03/23/21 23:54 baclofen [BACLOFEN] Allergy Unknown MOUTH Unverified 03/23/21 23:54 SWELLING bactrim Allergy Unknown Unknown Uncoded 03/23/21 23:54 Latex Allergy Unknown Unknown Uncoded 03/23/21 23:54 Latex Gloves Allergy Unknown Unknown Uncoded 03/23/21 23:54 Review of Systems Review of Systems: All other systems are reviewed and are negative Constitutional: Reports as per HPI and Reports no additional constitutional complaints Eyes: Reports as per HPI and Reports no additional eye complaints Reports system reviewed and no additional complaints, except as documented Cardiovascular: Reports as per HPI and Reports no additional cardiovascular complaints Respiratory: Reports as per HPI and Reports no additional respiratory complaints Gastrointestinal: Reports as per HPI and Reports no additional gastrointestinal complaints Genitourinary: Reports no additional female genitourinary complaints Musculoskeletal: Reports no additional musculoskeletal complaints Skin/Breast: Reports system reviewed and no additional complaints, except as docu Psychiatric: Reports no additional psychiatric complaints Endocrine: Reports no additional endocrine complaints Hematologic/Lymphatic: Reports no additional hematologic/lymphatic complaints Allergic/Immunologic: Reports no additional allergic/immunologic complaints Reports system reviewed and no additional complaints, except as documented and Reports Abnormal speech present [facility] Past Medical History Medical History Anxiety Asthma Depression Seizure Social History Social History Alcohol intake: never Physical Exam Vital Signs: Vital Signs: Last Vital Signs Temp 99.0 F 10/02/22 20:42 Pulse 86 10/02/22 20:42 Resp 14 10/02/22 20:42 BP 126/79 10/02/22 20:42 Pulse Ox 99 10/02/22 20:42 O2 Del Method Room Air 10/02/22 20:42 BMI result Body Mass Index 32.7 Vital signs have been reviewed as appeared to be correct. Blood pressure normal. Heart rate normal. Respiration rate normal. Temperature normal. Oxygen saturation normal. Appearance: Alert. Oriented X3. No acute distress. Head: Normal external exam. Normocephalic. Atraumatic. No Cadena signs noted. No raccoon eyes noted. Mouth exam: Widespread dental decay, tenderness over left upper incisor broken tooth, swelling and tenderness over the gum, no fluctuation. Eyes: PERRLA. EOMI. Conjunctiva and sclera normal. Eyelids normal. ENT: TM's Normal. Pharynx normal. Uvula midline. Moist mucous membranes. No trismus noted. No drooling noted. No muffled voice noted. Neck: Normal inspection. Neck supple. FROM. No adenopathy. Thyroid Normal. No meningeal signs. No neck mass noted. CVS: Normal heart rate and rhythm. Heart sound normal. No murmurs noted. Pulses normal throughout. Respiratory: No respiratory distress. Painless inspiration. Breath sounds normal. No wheezes/rales/rhonchi noted. Chest nontender. No accessory muscle usage noted or decreased air movement noted. Abdomen: Soft and nontender. Bowel sounds normal in all 4 quadrants. No distention noted. No organomegaly noted. No visible injury noted. Back: No CVA tenderness. Full range of motion noted. Skin: Skin warm and dry. Normal skin color. Normal skin turgor. No rashes/lesions/lacerations noted. Extremities: No lower extremity edema. Extremities exhibit normal range of motion. Extremities nontender. Neuro: Oriented X 3. Cranial nerve exam: II-XII are grossly intact No motor deficit. No sensory deficit. Reflexes normal. Course Course Course Narrative: Broken tooth with gingivitis will start the patient on amoxicillin/few pills of oxycodone and follow up with the dentist. Medical Decision Making Differential Diagnosis Differential Diagnoses: The differential diagnosis associated with the presentation includes (Dental decay, gingivitis.) Discharge Plan Discharge Clinical Impression: Toothache, Dental caries, Gingivitis Patient Disposition: Home, Self-Care Instructions: Gingivitis (ED) Additional Instructions: Follow-up with your dentist. Prescriptions: New amoxicillin 500 mg tablet 500 mg PO BID Qty: 14 0RF oxycodone 5 mg tablet 5 mg PO BID PRN (Reason: pain) Qty: 7 0RF Rx Instructions: Partial Fill upon patient request. No Action ondansetron 4 mg tablet,disintegrating 4 mg PO Q6H PRN (Reason: nausea and vomiting) Qty: 14 0RF
--- OUTSIDE RECORDS SUMMARY | 2022-10-02 21:14 | XMS_ITS | Continuity of Care Document ---
Author Name Unknown Organization [facility] Address [address] [place] [address] [address], [address] [place] [address]- Care Team Providers Care Fuel House Attendant Name Role Phone Name Mane AGUERO Primary Care Physician [phone] Encounter [facility] [place] Date(s): 04/30/20 - 05/07/20 [facility] [address] [place] [address], [address] [place], [place] [address] Attending Physician: Robert Kennedy MD Referring Physician: Monica WEATHERIZATION TECHNICIAN, Shreya Palacios Allergies, Adverse Reactions, Alerts Substance Reaction Severity Status baclofen Active Latex Rash Active Immunizations Not Given Vaccine Date Status Refusal Reason pneumococcal 23-valent vaccine 02/26/17 Not Given Patient Refuses influenza virus vaccine, inactivated 02/26/17 Not Given Patient Refuses Medications Albuterol 2 puffs, Inhalation, Every 4 hours, PRN Wheezing/Shortness of Breath, 0 Refills, Maintenance Start Date: 01/08/10 Status: Ordered Ambien 10 mg oral tablet 1 tablet = 10 mg, By Mouth, Daily at bedtime, PRN for sleep, 0 Refills, Maintenance, 02/25/17 19:45:59, Tablet Start Date: 02/25/17 Status: Ordered clonazePAM 1 mg oral tablet 1 tablet = 1 mg, By Mouth, Daily at bedtime, 0 Refills, Maintenance, 02/25/17 19:45:37, Tablet Start Date: 02/25/17 Status: Ordered Excedrin Migraine 250 mg-250 mg-65 mg oral tablet 2 tablet, By Mouth, Every 6 hours, PRN for headache, # 50 tablet, 0 Refills, Acute 11/13/15 10:44:00, 11/19/14 10:44:37, Tablet, SWEDISH PLEASE, 2 tablet By Mouth Every 6 hours,PRN:for headache Start Date: 11/19/14 Stop Date: 11/13/15 Status: Ordered gabapentin 100 mg oral capsule 100 mg, 1, capsule, By Mouth, 3 times a day, # 90 capsule, Refills 0, Maintenance, 04/30/20 14:11:00 EST, Partial fill upon patient request if the prescription is for a schedule II opioid drug. Start Date: 04/30/20 Status: Ordered Prilosec 40 mg oral enteric coated capsule 1 capsule = 40 mg, By Mouth, Daily, 0 Refills, Maintenance Start Date: 01/08/10 Status: Ordered Suboxone 8 mg-2 mg Sublingual Film 1 film, Sublingual, 2 times a day, dissolve under the tongue, 0 Refills, Maintenance, 04/30/20 14:11:00 EST, Film, Partial fill upon patient request if the prescription is for a schedule II opioid drug. Start Date: 04/30/20 Status: Ordered topiramate 50 mg oral tablet 2 tablet = 100 mg, By Mouth, 2 times a day, # 120 tablet, 5 Refills, Maintenance, 06/07/16 12:49:11, SWEDISH PLEASE Start Date: 06/07/16 Stop Date: 12/04/16 Status: Ordered Xanax 1 mg oral tablet 1 tablet = 1 mg, By Mouth, Daily at bedtime, 0 Refills, Maintenance, 02/25/17 21:55:33 Start Date: 02/25/17 Status: Ordered Vital Signs Most recent to oldest [Reference Range]: 1 Height 160 cm (04/30/20 2:09 PM) Weight 79.4 kg (04/30/20 2:09 PM) Body Mass Index [18.5-24.99] 31.02 *>HHI* (04/30/20 2:09 PM) Social History Social History Type Response Tobacco Use: QUICK SMOKING F OR 2 MONTHS. Tobacco user in household: No. Sex
--- OUTSIDE RECORDS SUMMARY | 2022-10-02 21:14 | XMS_ITS | Continuity of Care Document ---
Author Name Unknown Organization [facility] Address [address] [place] [address] [address], [address] [place] [address]- Care Team Providers Care Cobbler Upper Name Role Phone Name Mane AGUERO Primary Care Physician Encounter [facility] Date(s): 04/30/20 - 05/30/20 [facility] [address] [place] [address], [address] [place], [place] [address] Attending Physician: Chuck Wei Admitting Physician: AdmtrChuck Referring Physician: Admtr, Ar8 Allergies, Adverse Reactions, Alerts Substance Reaction Severity [...] Refills, Acute 11/13/15 10:44:00, 11/19/14 10:44:37, Tablet, PRYDEINIG PLEASE, 2 tablet By Mouth Every 6 [...] 120 tablet, 5 Refills, Maintenance, 06/07/16 12:49:11, PRYDEINIG PLEASE Start Date: 06/07/16 Stop Date: 12/04/16 Status: Ordered Xanax 1 mg oral tablet 1 tablet = 1 mg, By Mouth, Daily at bedtime, 0 Refills, Maintenance, 02/25/17 21:55:33 Start Date: 02/25/17 Status: Ordered Social History Social History Type Response Tobacco Use: QUICK SMOKING F OR 2 MONTHS. Tobacco user in household: No. Sex
--- OUTSIDE RECORDS SUMMARY | 2022-10-02 21:14 | XMS_ITS | Continuity of Care Document ---
Author Name Unknown Organization [facility] Address [address] [place] [id number]- Care Team Providers Care Supervisor Pre Wave Name Role Phone Name Mane AGUERO Primary Care Physician [id number] Date(s): 03/10/21 - 04/15/21 [facility] [address] [place] [id number] Attending Physician: Shai Roe V Admitting Physician: Shai Roe V Referring Physician: Shai Roe V Allergies, Adverse Reactions, Alerts Substance Reaction Severity [...] Refills, Acute 11/13/15 10:44:00, 11/19/14 10:44:37, Tablet, [place] PLEASE, 2 tablet By Mouth Every 6 [...] 120 tablet, 5 Refills, Maintenance, 06/07/16 12:49:11, [place] PLEASE Start Date: 06/07/16 Stop Date: 12/04/16 Status: Ordered Xanax 1 mg oral tablet 1 tablet = 1 mg, By Mouth, Daily at bedtime, 0 Refills, Maintenance, 02/25/17 21:55:33 Start Date: 02/25/17 Status: Ordered Social History Social History Type Response Tobacco Use: QUICK SMOKING F OR 2 MONTHS. Tobacco user in household: No. Sex
--- OUTSIDE RECORDS SUMMARY | 2022-10-02 21:14 | XMS_ITS | Continuity of Care Document ---
Author Name Unknown Organization [facility] Address [address] [place] [address] Gloria montalvo, [address] [place] [address]- Care Team Providers Care Financing Analyst Name Role Phone Name Mane AGUERO Primary Care Physician Encounter [facility] Date(s): 04/01/20 - 05/01/20 [facility] [address] [place] [address] Drive, [address] [place], [place] [address] Allergies, Adverse Reactions, Alerts Substance Reaction Severity [...] Refills, Acute 11/13/15 10:44:00, 11/19/14 10:44:37, Tablet, [place] PLEASE, 2 tablet By Mouth Every 6 [...] 120 tablet, 5 Refills, Maintenance, 06/07/16 12:49:11, [place] PLEASE Start Date: 06/07/16 Stop Date: 12/04/16 Status: Ordered Xanax 1 mg oral tablet 1 tablet = 1 mg, By Mouth, Daily at bedtime, 0 Refills, Maintenance, 02/25/17 21:55:33 Start Date: 02/25/17 Status: Ordered Social History Social History Type Response Tobacco Use: QUICK SMOKING F OR 2 MONTHS. Tobacco user in household: No. Sex
--- OUTSIDE RECORDS SUMMARY | 2022-10-02 21:14 | XMS_ITS | Continuity of Care Document ---
Author Name Unknown Organization [facility] Address [address] [place] [id number]- Care Team Providers Care Hadoop Analyst Name Role Phone Name Mane AGUERO [id number] Date(s): [facility]/16/21 - 04/15/21 [facility] [address] [place] [id number] Attending Physician: Chuck Wei Admitting Physician: AdmChuck teague Referring Physician: Admtr, ArDeanna Allergies, Adverse Reactions, Alerts Substance Reaction Severity [...] Refills, Acute 11/13/15 10:44:00, 11/19/14 10:44:37, Tablet, [place] P[place], 2 tablet By Mouth Every 6 [...] 120 tablet, 5 Refills, Maintenance, 06/07/16 12:49:11, [place] P[place] Start Date: 06/07/16 Stop Date: 12/04/16 Status: Ordered Xanax 1 mg oral tablet 1 tablet = 1 mg, By Mouth, Daily at bedtime, 0 Refills, Maintenance, 02/25/17 21:55:33 Start Date: 02/25/17 Status: Ordered Social History Social History Type Response Tobacco Use: QUICK SMOKING F OR 2 MONTHS. Tobacco user in household: No. Sex
[2022-10-02] MEDS: Amoxicillin 500 MG CAPSULE PO (21:19)
[2022-10-02] MEDS: Ibuprofen 600 MG TABLET PO (21:20)
[2022-10-02] MEDS: oxyCODONE HCl Immed Release 5 MG TABLET PO (21:20)
== END 2022-10-02 21:48 | disposition home or self-care (01) ==
PROVIDERS: Emergency Provider Emergency Medicine; PCP Internal Medicine Geriatric Medicine
DX: K08.89 Other specified disorders of teeth and supporting structures (principal); K02.9 Dental caries, unspecified; K05.10 Chronic gingivitis, plaque induced
CPT/HCPCS: 99283

== ENCOUNTER 2022-10-20 08:34 | Outpatient (REF) | payer MEDICAID, SELFPAY ==
[2022-10-20 12:18] LABS: Syphilis Screen Nonreactive (Nonreactive)
[2022-10-20 12:20] LABS: HIV AB/AG Nonreactive (Nonreactive); HIV Num 1 0.05 S/CO (0.00-0.99); Hepatitis B Core Antibody Nonreactive (Nonreactive); ~HepC Num1 0.09 S/CO (0.00-0.79); ~Hepatitis C Antibody Nonreactive (Nonreactive)
[2022-10-20 14:30] LABS: CT PCR NOT DETECTED (Not Detect.); NG PCR NOT DETECTED (Not Detect.)
== END 2022-10-20 08:35 | disposition home or self-care (01) ==
LOC: HO.LAB 08:34
PROVIDERS: PCP Internal Medicine Geriatric Medicine; Visit Provider Advanced Practice Midwife
DX: Z01.419 Encounter for gynecological examination (general) (routine) without abnormal findings (principal); R87.612 Low grade squamous intraepithelial lesion on cytologic smear of cervix (LGSIL); Z20.2 Contact with and (suspected) exposure to infections with a predominantly sexual mode of transmission
CPT/HCPCS: 0353U; 86704; 86780; 86803; 87389; 87624; 88142

== ENCOUNTER 2022-10-20 09:28 | Outpatient (REF) | payer MEDICAID, SELFPAY ==
[2022-10-26 22:13] LABS: HPV mRNA E6/E7 rflx Not Detected (Not Detected)
== END 2022-10-20 09:29 | disposition home or self-care (01) ==
LOC: HO.LNP 09:28
PROVIDERS: Visit Provider Advanced Practice Midwife
DX: Z01.419 Encounter for gynecological examination (general) (routine) without abnormal findings (principal); R87.612 Low grade squamous intraepithelial lesion on cytologic smear of cervix (LGSIL)
CPT/HCPCS: 87624; 88142

== ENCOUNTER 2022-11-24 11:23 | Outpatient (REF) | payer MEDICAID, SELFPAY | END 2022-11-24 11:24 | disposition home or self-care (01) | LOC: HO.HOSX 11:23 | PROVIDERS: Visit Provider Orthopaedic Surgery | DX: Z13.89 Encounter for screening for other disorder (principal) ==

== ENCOUNTER 2023-05-06 11:22 | Outpatient (REF) | payer MEDICAID, SELFPAY | END 2023-05-06 11:23 | disposition home or self-care (01) | LOC: HO.HMGCX 11:22 | PROVIDERS: PCP Internal Medicine Geriatric Medicine; Visit Provider Emergency Medicine | DX: M79.89 Other specified soft tissue disorders (principal) | CPT/HCPCS: 93970 ==

== ENCOUNTER 2023-05-26 16:56 | Outpatient (REF) | payer MEDICAID, SELFPAY ==
[2023-05-31 08:51] LABS: Codeine, Ur NEGATIVE; Hydrocodone, Ur NEGATIVE; Hydromorphone, Ur NEGATIVE; Morphine, Ur NEGATIVE; Norhydrocodone, Ur NEGATIVE; Noroxycodone, Ur NEGATIVE; Oxycodone, Ur NEGATIVE; Oxymorphone, Ur NEGATIVE
== END 2023-05-26 16:57 | disposition home or self-care (01) ==
LOC: HO.HHCLNP 16:56
PROVIDERS: Visit Provider Family Medicine
DX: F11.20 Opioid dependence, uncomplicated (principal); Z51.81 Encounter for therapeutic drug level monitoring; Z79.899 Other long term (current) drug therapy
CPT/HCPCS: 80365; G0480

== ENCOUNTER 2023-07-06 09:47 | Outpatient (REF) | payer MEDICAID, SELFPAY ==
[2023-07-06 11:13] LABS: MANUAL DIFF FLAG NO
[2023-07-06 11:15] LABS: Basophils Percent Auto 0.7 % (0-2); Eosinophils Absolute Auto 0.3 X10*3/uL (0.0-0.4); Eosinophils Percent Auto 4.8 % (0-4); Hematocrit 36.8 % (37.0-47.0); Hemoglobin 11.6 g/dl (12.0-16.0); Imm Gran Abs Auto 0.01 X10*3/uL (0.00-0.03); Imm Gran Pct Auto 0.2 % (0.0-0.4); Lymphocytes Absolute Auto 1.3 X10*3/uL (1.2-4.9); Lymphocytes Percent Auto 23.3 % (20-40); Mean Corpuscular HGB Conc 31.5 g/dl (31.0-35.0); Mean Corpuscular Hemoglobin 25.8 pg (27.0-33.0); Mean Platelet Volume 11.6 fL (9.4-12.3); Monocytes Absolute Auto 0.7 X10*3/uL (0.1-1.2); Monocytes Percent Auto 12.4 % (2-11); Neutrophils Absolute Auto 3.2 x10*3/uL (2.0-8.3); Neutrophils Percent Auto 58.6 % (45-73); Platelet Count 200 X10*3/uL (160-400); Red Blood Count 4.49 X10*6/uL (4.20-5.50); Red Cell Distribution Width 14.3 % (11.0-16.0); White Blood Count 5.4 X10*3/uL (4.8-10.8)
[2023-07-06 11:41] LABS: Alanine Aminotransferase 8 U/L (0-31); Albumin Level 3.6 g/dL (3.5-5.0); Alkaline Phosphatase 105 U/L (39-117); Anion Gap 9 (12-20); Aspartate Amino Transferase 17 U/L (5-31); Bilirubin Total 0.2 mg/dL (0.0-1.0); Blood Urea Nitrogen 8 mg/dL (9-16); Carbon Dioxide 25 mmol/L (22-29); Chloride 106 mmol/L (96-108); Estimated Glomerular Filt Rate > 60; Glucose Random 91 mg/dL (60-115); Potassium 3.8 mmol/L (3.3-5.1); Sodium 136 mmol/L (135-145); Total Protein 7.2 g/dL (6.5-8.0)
[2023-07-06 11:49] LABS: TSH reflex Free T4 1.73 uIU/mL (0.32-4.0)
== END 2023-07-06 09:48 | disposition home or self-care (01) ==
LOC: HO.HHCL 09:47
PROVIDERS: Visit Provider Internal Medicine Geriatric Medicine
DX: R60.0 Localized edema (principal); R63.5 Abnormal weight gain
CPT/HCPCS: 36415; 80053; 84443; 85025

== ENCOUNTER 2023-09-15 17:55 | Outpatient (REF) | payer MEDICAID, SELFPAY | END 2023-09-15 17:56 | disposition home or self-care (01) | LOC: HO.HHCLNP 17:55 | PROVIDERS: Visit Provider Registered Nurse | DX: R39.9 Unspecified symptoms and signs involving the genitourinary system (principal); R60.0 Localized edema; R53.83 Other fatigue | CPT/HCPCS: 87086 ==

== ENCOUNTER 2023-09-22 19:26 | Emergency (ER) | payer MEDICAID, SELFPAY ==
[2023-09-22 20:04] VITALS: BP 114/80; PULSE 80; RESP 20; TEMP 36.6; O2SAT 100; BMI 29.3
--- NOTE | 2023-09-22 20:44 | ED.GENADULT ---
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 She states her entire body is itching She reports that she recently stayed at a friend's house who had bed bugs and the dog had scabies Patient reports itching since yesterday You went to her primary doctor 5 days ago for a separate complaint of bilateral leg swelling Denies any travel or history of DVT/blood clots Popcorn and drinking soda at the time my evaluation. She admits to a poor diet that is high in sodium, candy and soda Denies any shortness of breath Related Data Home Medications ?Medication ?Instructions ?Recorded ?Confirmed acetaminophen 500 mg tablet 1,000 mg PO Q4-6H PRN 10/20/22 buprenorphine 8 mg-naloxone 2 mg 20 mg sublingual QAM 10/20/22 sublingual film (Suboxone) clonazepam 0.5 mg tablet 0.5 mg PO Q OTHER DAY 10/20/22 docusate sodium 100 mg capsule 100 - 200 mg PO BEDTIME PRN 10/20/22 constipation duloxetine 30 mg capsule,delayed 0 mg PO 10/20/22 release duloxetine 60 mg capsule,delayed 60 mg PO QAM 10/20/22 release fluticasone propionate 50 2 spray intranasal DAILY 10/20/22 mcg/actuation nasal spray,suspension gabapentin 300 mg capsule 300 mg PO TID 10/20/22 hydroxyzine pamoate 50 mg capsule 100 mg PO BEDTIME PRN 10/20/22 ibuprofen 600 mg tablet 600 mg PO Q8H PRN moderate pain 10/20/22 lidocaine 5 % topical patch 0 patch topical 10/20/22 meloxicam 7.5 mg tablet 7.5 mg PO DAILY 10/20/22 naloxone 4 mg/actuation nasal spray 0 spray intranasal 10/20/22 prazosin 2 mg capsule 2 mg PO QAM 10/20/22 prazosin 5 mg capsule 10 mg PO BEDTIME 10/20/22 topiramate 50 mg tablet 50 mg PO BID 10/20/22 Previous Rx's ?Medication ?Instructions ?Recorded ondansetron 4 mg disintegrating 4 mg PO Q6H PRN nausea and 10/23/21 tablet vomiting #14 tabs permethrin 5 % topical cream 1 appl topical Q14D 2 doses #60 09/22/23 grams Allergies Allergy/AdvReac Type Severity Reaction Status Date / Time latex [LATEX] Allergy Severe RASH Verified 09/22/23 20:07 baclofen [BACLOFEN] Allergy Unknown MOUTH Verified 09/22/23 20:07 SWELLING bactrim Allergy Unknown Unknown Uncoded 09/22/23 20:07 Latex Allergy Unknown Unknown Uncoded 09/22/23 20:07 Latex Gloves Allergy Unknown Unknown Uncoded 09/22/23 20:07 Review of Systems Constitutional: Constitutional: Denies body ache(s), Denies chills and Denies fever(s) ENT: Denies sore throat Cardiovascular: Cardiovascular: Denies chest pain, Reports pedal edema, Reports leg edema and Denies dyspnea Respiratory: Respiratory: Denies cough and Denies dyspnea Gastrointestinal: Gastrointestinal: Denies abdominal pain, Denies nausea and Denies vomiting Musculoskeletal: Musculoskeletal: Denies back pain Integumentary/Breasts: Skin/Breast: Reports pruritus PMFSH Past Medical History Medical History Anxiety Asthma Depression LGSIL on Pap smear of cervix Seizure Surgical History H/O abdominoplasty H/O gastric bypass H/O shoulder surgery History of endometrial ablation Hx of cholecystectomy Hx of tubal ligation Family History Family History Maternal Grandmother Ovarian cancer Uterine cancer Maternal Grandfather Pancreas cancer Social History Social History Alcohol intake: never Patient Tobacco Use Status: Never used Tobacco Advance Directives: No Advance Directives Information Provided: No Do you have a plan to hurt others: No Plan Sexual orientation: Straight/Heterosexual Gender identity: Female Physical Exam ED Vital Signs: Vital Signs - 24 hr 09/22/23 20:04 Temperature 98 F Pulse Rate 80 Respiratory Rate 20 Blood Pressure 114/80 Pulse Oximetry 100 Oxygen Delivery Method Room Air BMI result Body Mass Index 29.3 Const General: healthy appearing, comfortable, no acute distress, alert and awake Nutritional Appearance: well nourished Orientation/consciousness: patient oriented x3 HENMT Head: Yes normocephalic and Yes atraumatic Eyes Eyelids: Yes eyelids normal Conjunctivae: conjunctivae normal Sclerae: sclerae normal Corneas: corneas normal Pupils: Equal, round and reactive pupils present EOM: EOMs intact bilaterally Neck Neck: Yes full ROM Resp Effort & Inspection: normal respiratory effort, able to speak in complete sentences, no audible wheezes and not labored Auscultation: clear to auscultation bilaterally Cardio Other: 1+ bilateral pitting edema to lower extremities Skin Other: No obvious rashes, erythema, the papular lesions or excoriations General skin exam: elasticity normal Neuro General: patient oriented x3 Cranial nerves: Yes Equal, round and reactive pupils present and Yes Bilaterally intact EOM present Cognition (Neuro): normal cognition Extrem Other: Moving all extremities well without any obvious deformities Medical Decision Making Medical Decision Making MDM Narrative: 43-year-old female presents for evaluation of 2 separate complaints. She has no obvious rash but reports positive contact with scabies and bedbugs. She was educated on bed bugs and will be given permethrin for scabies. Her significant other is here with similar symptoms. Her leg swelling is most likely related to diet. She is eating popcorn when she reports she has been eating frequently for the last month. Her PCP recently started her on a diuretic. She has no shortness of breath, tachypnea or hypoxia. Lungs are clear to auscultation. Patient was encouraged to avoid excessive salt or fluid intake Differential Diagnosis Differential Diagnoses: The differential diagnosis associated with the presentation includes Dermatitis Scabies Bedbugs Fluid overload Dependent edema Discharge Plan Discharge Clinical Impression: Dermatitis Patient Disposition: Home, Self-Care Instructions: Scabies (ED), Bed Bugs (ED) Additional Instructions: Apply permethrin cream to your entire body except your face before bed and shower off in the morning You may apply another dose in 2 weeks if you are still having any itching or rash You may use Benadryl ointment or capsules to help with the itch I recommend that you get the clothes you were wearing or your friend's house Follow-up with your primary doctor Prescriptions: New permethrin 5 % cream 1 appl topical Q14D Qty: 60 0RF Rx Instructions: apply second treatment 14 days after first treatment if live lice remain No Action ondansetron 4 mg tablet,disintegrating 4 mg PO Q6H PRN (Reason: nausea and vomiting) Qty: 14 0RF buprenorphine-naloxone [Suboxone] 8-2 mg film 20 mg sublingual QAM naloxone 4 mg/actuation spray,non-aerosol 0 spray intranasal duloxetine 60 mg capsule,delayed release(DR/EC) 60 mg PO QAM duloxetine 30 mg capsule,delayed release(DR/EC) 0 mg PO topiramate 50 mg tablet 50 mg PO BID prazosin 2 mg capsule 2 mg PO QAM gabapentin 300 mg capsule 300 mg PO TID docusate sodium 100 mg capsule 100 - 200 mg PO BEDTIME PRN (Reason: constipation) lidocaine 5 % adhesive patch,medicated 0 patch topical prazosin 5 mg capsule 10 mg PO BEDTIME acetaminophen 500 mg tablet 1,000 mg PO Q4-6H PRN hydroxyzine pamoate 50 mg capsule 100 mg PO BEDTIME PRN clonazepam 0.5 mg tablet 0.5 mg PO Q OTHER DAY ibuprofen 600 mg tablet 600 mg PO Q8H PRN (Reason: moderate pain) fluticasone propionate 50 mcg/actuation spray,suspension 2 spray intranasal DAILY meloxicam 7.5 mg tablet 7.5 mg PO DAILY Print Language: Malaysian
[2023-09-22 21:09] VITALS: BP 116/78; PULSE 76; RESP 18; TEMP 36.6; O2SAT 100
== END 2023-09-22 21:10 | disposition home or self-care (01) ==
PROVIDERS: Emergency Provider Internal Medicine; PCP Internal Medicine Geriatric Medicine
DX: L30.9 Dermatitis, unspecified (principal)
CPT/HCPCS: 99282; 99283

== ENCOUNTER 2023-11-20 13:40 | Emergency (ER) | payer MEDICAID, SELFPAY ==
[2023-11-20 13:46] VITALS: BP 135/74; PULSE 77; RESP 20; TEMP 36.6; O2SAT 100; BMI 34.3
--- NOTE | 2023-11-20 13:52 | ED_ITS ---
HPI - General Adult General Chief complaint: Nausea/Vomiting/Diarrhea Stated complaint: Vomiting/Diarrhea Time Seen by Provider: 11/20/23 14:06 Source: patient Mode of arrival: ambulatory Limitations: no limitations History of Present Illness ED Provider: Silvana RICO narrative: Patient is a 43-year-old female presenting to the emergency department with complaint of nausea, vomiting and diarrhea for the past 2 days. Denies abdominal pain, back or flank pain. Reports subjective fever last night. Denies any known sick contacts. Denies cough or shortness of breath but does report some nasal congestion. Denies sore throat. Has been attempting to drink [employer] today but is unable to keep it down. Denies any hematemesis, hematochezia or melena. Denies urinary symptoms. MD complaint: Nausea, vomiting, diarrhea Onset (ago): day(s) Associated symptoms: nausea/vomiting Treatments prior to arrival: none Related Data Home Medications ?Medication ?Instructions ?Recorded ?Confirmed acetaminophen 500 mg tablet 1,000 mg PO Q4-6H PRN 10/20/22 buprenorphine 8 mg-naloxone 2 mg 20 mg sublingual QAM 10/20/22 sublingual film (Suboxone) clonazepam 0.5 mg tablet 0.5 mg PO Q OTHER DAY 10/20/22 docusate sodium 100 mg capsule 100 - 200 mg PO BEDTIME PRN 10/20/22 constipation duloxetine 30 mg capsule,delayed 0 mg PO 10/20/22 release duloxetine 60 mg capsule,delayed 60 mg PO QAM 10/20/22 release fluticasone propionate 50 2 spray intranasal DAILY 10/20/22 mcg/actuation nasal spray,suspension gabapentin 300 mg capsule 300 mg PO TID 10/20/22 hydroxyzine pamoate 50 mg capsule 100 mg PO BEDTIME PRN 10/20/22 ibuprofen 600 mg tablet 600 mg PO Q8H PRN moderate pain 10/20/22 lidocaine 5 % topical patch 0 patch topical 10/20/22 meloxicam 7.5 mg tablet 7.5 mg PO DAILY 10/20/22 naloxone 4 mg/actuation nasal spray 0 spray intranasal 10/20/22 prazosin 2 mg capsule 2 mg PO QAM 10/20/22 prazosin 5 mg capsule 10 mg PO BEDTIME 10/20/22 topiramate 50 mg tablet 50 mg PO BID 10/20/22 Previous Rx's ?Medication ?Instructions ?Recorded ondansetron 4 mg disintegrating 4 mg PO Q6H PRN nausea and 10/23/21 tablet vomiting #14 tabs permethrin 5 % topical cream 1 appl topical Q14D 2 doses #60 09/22/23 grams ondansetron 4 mg disintegrating 4 mg PO Q8H PRN nausea and 11/20/23 tablet vomiting #10 tabs Allergies Allergy/AdvReac Type Severity Reaction Status Date / Time latex [LATEX] Allergy Severe RASH Verified 11/20/23 13:49 baclofen [BACLOFEN] Allergy Unknown MOUTH Verified 11/20/23 13:49 SWELLING bactrim Allergy Unknown Unknown Uncoded 11/20/23 13:49 Latex Allergy Unknown Unknown Uncoded 11/20/23 13:49 Latex Gloves Allergy Unknown Unknown Uncoded 11/20/23 13:49 Review of Systems 2 Review of Systems: As per HPI. Yes all other systems are reviewed and are negative Constitutional: Constitutional: Reports as per HPI PMFSH Past Medical History Medical History Anxiety Asthma Depression LGSIL on Pap smear of cervix Seizure Surgical History H/O abdominoplasty H/O gastric bypass H/O shoulder surgery History of endometrial ablation Hx of cholecystectomy Hx of tubal ligation Family History Family History Maternal Grandmother Ovarian cancer Uterine cancer Maternal Grandfather Pancreas cancer Social History Social History Alcohol intake: never Patient Tobacco Use Status: Never used Tobacco Advance Directives: No Advance Directives Information Provided: No Sexual orientation: Straight/Heterosexual Gender identity: Female Physical Exam ED Vital Signs: Vital Signs - 24 hr 11/20/23 13:46 11/20/23 14:10 11/20/23 16:12 Temperature 97.8 F 97.3 F 97.2 F Pulse Rate 77 71 61 Respiratory Rate 20 17 17 Blood Pressure 135/74 125/65 128/62 Pulse Oximetry 100 100 100 Oxygen Delivery Method Room Air Room Air Room Air BMI result Body Mass Index 34.3 Vital signs have been reviewed and appear to be correct. Blood pressure normal. Heart rate normal. Respiratory rate normal. Temperature normal. Oxygen saturation normal. Const General: cooperative, healthy appearing and no acute distress Orientation/consciousness: oriented to person, oriented to place, oriented to time and patient oriented x3 Limitations: no limitations HENMT Head: Yes normocephalic and Yes atraumatic Ears: external ears normal General nose exam: Normal external nose present Face and sinus: Yes face symmetric Mouth: oropharynx normal and moist mucous membranes Throat: Yes uvula midline Eyes Pupils: Equal, round and reactive pupils present Neck Neck: Yes normal visual inspection and Yes supple Resp Effort & Inspection: normal respiratory effort and able to speak in complete sentences Auscultation: clear to auscultation bilaterally Cardio Rate: regular rate Rhythm: regular rhythm Heart sounds: S1 normal heart sound present and S2 normal heart sound present GI Palpation (GI): Soft to palpation and nontender Auscultation: normoactive bowel sounds General: Yes no CVA tenderness Back/Spine/Pelvis Back: no CVA tenderness Skin General skin exam: elasticity normal and turgor normal Neuro General: oriented to person, oriented to place, oriented to time, patient oriented x3, moves all extremities, no focal motor deficits and CN's II-XI intact bilaterally Cranial nerves: Yes Equal, round and reactive pupils present Cognition (Neuro): normal cognition Extrem General: Yes full ROM, Yes no pedal edema and Yes no calf tenderness Psych Mental Status: mental status grossly normal Affect: normal affect Thought process: Normal thought process present Course Course Course Narrative: RME: done by RICK Moreno. 43 yold female presents to the ed for nausea, vomiting, and diarrhea for the past 2 days. Patient denies any abdominal pain. Negative for any abdominal tenderness on palpation. Labs ordered Medications Administered Discontinued Medications Generic Name Dose Route Start Last Admin Trade Name Freq PRN Reason Stop Dose Admin Ondansetron HCl 4 mg 11/20/23 14:36 11/20/23 14:40 Ondansetron Odt 4 Mg Tab.Luisdis TRANSLINGU 11/20/23 14:37 4 mg ONCE ONE Administration Medical Decision Making Medical Decision Making [facility] Narrative: Patient is a 43-year-old female presenting to the emergency department with complaint of nausea, vomiting and diarrhea for the past 2 days. On exam patient is awake, A+Ox3, VS WNL, afebrile, normal neurological exam without focal deficits, physical exam findings as above. Given reported symptoms and physical exam findings, initial differential includes gastroenteritis, viral illness, covid, flu. Labs notable for no leukocytosis, mild anemia similar to priors, no evidence of MAO. Urinalysis notable for moderate leukocytes, negative nitrites. Patient denies any urinary symptoms, will wait for culture before treating with antibiotics. Viral swabs negative. Patient able to tolerate silva ana paula and crackers in the ED after being medicated with zofran. Will discharge home with prescription for zofran. Follow up with PCP. Return precautions discussed at bedside. Patient verbalized understanding of and agreement with plan. Differential Diagnosis Differential Diagnoses: The differential diagnosis associated with the presentation includes As per [facility] Admission/Observation Consideration of admission/observation: Escalation of care including admission/observation considered Patient would have been admitted to the hospital had their work up had any findings where hospital admission was appropriate and their clinical presentation warranted hospital admission. Lab Data [facility] Lab Attestation statement: I reviewed the patient's lab results. As per [facility] 11/20/23 14:17 11/20/23 14:17 Labs: Lab Results 11/20/23 11/20/23 Range/Units 14:17 15:01 WBC 6.1 (4.8-10.8) X10*3/uL RBC 4.48 (4.20-5.50) X10*6/uL Hgb 11.7 L (12.0-16.0) g/dl Hct 35.7 L (37.0-47.0) % MCV 79.7 L (80.0-98.0) fL MCH 26.1 L (27.0-33.0) pg MCHC 32.8 (31.0-35.0) g/dl RDW 14.2 (11.0-16.0) % Plt Count 206 (160-400) X10*3/uL MPV 10.9 (9.4-12.3) fL Immature Gran % (Auto) 0.2 (0.0-0.4) % Neut % (Auto) 61.7 (45-73) % Lymph % (Auto) 29.4 (20-40) % Mills % (Auto) 7.5 (2-11) % Eos % (Auto) 0.5 (0-4) % Baso % (Auto) 0.7 (0-2) % Lymph # (Auto) 1.8 (1.2-4.9) X10*3/uL Mills # (Auto) 0.5 (0.1-1.2) X10*3/uL Eos # (Auto) 0.0 (0.0-0.4) X10*3/uL Baso # (Auto) 0.0 (0.0-0.2) X10*3/uL Abs Immat Gran (auto) 0.01 (0.00-0.03) X10*3/uL Absolute Neuts (auto) 3.8 (2.0-8.3) x10*3/uL Absolute Nucleated RBC 0.000 (0.0-0.012) X10*3/uL Nucleated RBC % (auto) 0.0 (0.0-0.2) /100WBC PT 11.2 (11.1-13.3) SEC INR 0.9 (0.9-1.1) APTT 28.3 (26.0-36.8) SEC Sodium 139 (135-145) mmol/L Potassium 3.4 (3.3-5.1) mmol/L Chloride 107 (96-108) mmol/L Carbon Dioxide 24 (22-29) mmol/L Anion Gap 11 L (12-20) BUN 6 L (9-16) mg/dL Creatinine 0.80 (0.5-1.4) mg/dL Estim Creat Clear Calc 96.8 Estimated GFR > 60 Random Glucose 106 (60-115) mg/dL Calcium 8.8 (8.4-10.2) mg/dL Total Bilirubin 0.4 (0.0-1.0) mg/dL AST 18 (5-31) U/L ALT 9 (0-31) U/L Alkaline Phosphatase 92 (39-117) U/L Total Protein 7.0 (6.5-8.0) g/dL Albumin 3.6 (3.5-5.0) g/dL Beta HCG, Quant < 2 mIU/mL Urine Color Yellow Urine Appearance Cloudy Urine pH 6.5 (5.0-9.0) Ur Specific [place] 1.010 (1.005-1.025) Urine Protein Negative (Neg-Trace) mg/dL Urine Glucose (UA) Negative (Negative) mg/dL Urine Ketones Negative (Negative) mg/dL Urine Blood Negative (Negative) Urine Nitrite Negative (Negative) Ur Leukocyte Esterase Moderate (2+) H (Negative) Urine RBC 0-2 (0-2) /HPF Urine WBC 11-20 H (0-5) /HPF Ur Squamous Epith Cells 6-10 (0-2) /HPF Urine Bacteria 1+ (None Seen) Hyaline Casts 0-2 (0-2) /LPF Influenza Type A (PCR) NEGATIVE (Negative) Influenza Type B (PCR) NEGATIVE (Negative) RSV RNA Qual (PCR) NEGATIVE (Negative) SARS-CoV-2 RNA (RT-PCR) NEGATIVE (Negative) External Record Review External record reviewed: Inpatient record, Office record and Outpatient record Prescription Management I considered prescription management with: Other Discharge Plan Discharge Clinical Impression: Gastroenteritis Patient Disposition: Home, Self-Care Instructions: Gastroenteritis (DC) Additional Instructions: You have been evaluated in the emergency department today for nausea, vomiting, and diarrhea. Your evaluation suggests that your symptoms are most likely due to a viral illness which will improve on it's own with rest and fluids. Remember to drink plenty of fluids at home. You are being prescribed ondansetron which you can use as per the prescription instructions for nausea. Please follow up with your primary care provider within two days. Return to the emergency department if you experience worsening or uncontrolled pain, inability to tolerate fluids by mouth, difficulty breathing, fevers 100.4? F or greater, recurrent vomiting, or any other concerning symptoms. Prescriptions: New ondansetron 4 mg tablet,disintegrating 4 mg PO Q8H PRN (Reason: nausea and vomiting) Qty: 10 0RF No Action ondansetron 4 mg tablet,disintegrating 4 mg PO Q6H PRN (Reason: nausea and vomiting) Qty: 14 0RF permethrin 5 % cream 1 appl topical Q14D Qty: 60 0RF Rx Instructions: apply second treatment 14 days after first treatment if live lice remain buprenorphine-naloxone [Suboxone] 8-2 mg film 20 mg sublingual QAM naloxone 4 mg/actuation spray,non-aerosol 0 spray intranasal duloxetine 60 mg capsule,delayed release(DR/EC) 60 mg PO QAM duloxetine 30 mg capsule,delayed release(DR/EC) 0 mg PO topiramate 50 mg tablet 50 mg PO BID prazosin 2 mg capsule 2 mg PO QAM gabapentin 300 mg capsule 300 mg PO TID docusate sodium 100 mg capsule 100 - 200 mg PO BEDTIME PRN (Reason: constipation) lidocaine 5 % adhesive patch,medicated 0 patch topical prazosin 5 mg capsule 10 mg PO BEDTIME acetaminophen 500 mg tablet 1,000 mg PO Q4-6H PRN hydroxyzine pamoate 50 mg capsule 100 mg PO BEDTIME PRN clonazepam 0.5 mg tablet 0.5 mg PO Q OTHER DAY ibuprofen 600 mg tablet 600 mg PO Q8H PRN (Reason: moderate pain) fluticasone propionate 50 mcg/actuation spray,suspension 2 spray intranasal DAILY meloxicam 7.5 mg tablet 7.5 mg PO DAILY Print Language: Chinese
[2023-11-20 14:10] VITALS: BP 125/65; PULSE 71; RESP 17; TEMP 36.3; O2SAT 100
[2023-11-20 14:23] LABS: MANUAL DIFF FLAG NO
[2023-11-20 14:24] LABS: Basophils Percent Auto 0.7 % (0-2); Eosinophils Percent Auto 0.5 % (0-4); Hematocrit 35.7 % (37.0-47.0); Hemoglobin 11.7 g/dl (12.0-16.0); Imm Gran Abs Auto 0.01 X10*3/uL (0.00-0.03); Imm Gran Pct Auto 0.2 % (0.0-0.4); Lymphocytes Absolute Auto 1.8 X10*3/uL (1.2-4.9); Lymphocytes Percent Auto 29.4 % (20-40); Mean Corpuscular HGB Conc 32.8 g/dl (31.0-35.0); Mean Corpuscular Hemoglobin 26.1 pg (27.0-33.0); Mean Corpuscular Volume 79.7 fL (80.0-98.0); Mean Platelet Volume 10.9 fL (9.4-12.3); Monocytes Absolute Auto 0.5 X10*3/uL (0.1-1.2); Monocytes Percent Auto 7.5 % (2-11); Neutrophils Absolute Auto 3.8 x10*3/uL (2.0-8.3); Neutrophils Percent Auto 61.7 % (45-73); Platelet Count 206 X10*3/uL (160-400); Red Blood Count 4.48 X10*6/uL (4.20-5.50); Red Cell Distribution Width 14.2 % (11.0-16.0); White Blood Count 6.1 X10*3/uL (4.8-10.8)
[2023-11-20 14:30] LABS: INTERNATIONAL NORM RATIO 0.9 (0.9-1.1); Prothrombin Time 11.2 SEC (11.1-13.3)
[2023-11-20 14:33] LABS: Partial Thromboplastin Time 28.3 SEC (26.0-36.8)
[2023-11-20] MEDS: Ondansetron ODT 4 MG TAB.RAPDIS TRANSLINGU (14:40)
[2023-11-20 14:50] LABS: Alanine Aminotransferase 9 U/L (0-31); Albumin Level 3.6 g/dL (3.5-5.0); Alkaline Phosphatase 92 U/L (39-117); Anion Gap 11 (12-20); Aspartate Amino Transferase 18 U/L (5-31); Bilirubin Total 0.4 mg/dL (0.0-1.0); Blood Urea Nitrogen 6 mg/dL (9-16); Calcium 8.8 mg/dL (8.4-10.2); Carbon Dioxide 24 mmol/L (22-29); Chloride 107 mmol/L (96-108); Creatinine Clr Calc Pharmacy 96.8; Estimated Glomerular Filt Rate > 60; Glucose Random 106 mg/dL (60-115); Potassium 3.4 mmol/L (3.3-5.1); Sodium 139 mmol/L (135-145)
[2023-11-20 14:55] LABS: HCG Quantitative < 2 mIU/mL
[2023-11-20 15:00] LABS: Influenza A PCR NEGATIVE (Negative); Influenza B PCR NEGATIVE (Negative); Resp Syncy Virus RNA Qual PCR NEGATIVE (Negative); SARS COV2 PCR INHOUSE NEGATIVE (Negative)
[2023-11-20 15:09] LABS: Appearance Urine Cloudy; Color Urine Yellow; Glucose Urine UA Negative (Negative); Leukocyte Esterase Urine Moderate (2+) (Negative); Nitrite Urine Negative (Negative); PH 6.5 (5.0-9.0); UMIC TRIGGER UACC YES; Urine Blood Negative (Negative); Urine Ketones Negative (Negative); Urine Protein Negative (Neg-Trace)
[2023-11-20 15:37] LABS: Bacteria Urine 1+ (None Seen); Hyaline Casts Urine 0-2 /LPF (0-2); RBC Urine 0-2 /HPF (0-2); UACC Culture Trigger YES
[2023-11-20 16:12] VITALS: BP 128/62; PULSE 61; RESP 17; TEMP 36.2; O2SAT 100
[2023-11-20 16:37] VITALS: BP 128/62; PULSE 61; RESP 17; TEMP 36.2; O2SAT 100
== END 2023-11-20 16:38 | disposition home or self-care (01) ==
PROVIDERS: Physician Assistant; Emergency Provider Emergency Medicine; PCP Internal Medicine Geriatric Medicine
DX: K52.9 Noninfective gastroenteritis and colitis, unspecified (principal); R11.2 Nausea with vomiting, unspecified; Z03.818 Encounter for observation for suspected exposure to other biological agents ruled out; Z79.899 Other long term (current) drug therapy
CPT/HCPCS: 0241U; 80053; 81001; 84702; 85025; 85610; 85730; 87086; 99283

== ENCOUNTER 2024-04-24 10:50 | Outpatient (REF) | payer MEDICAID, SELFPAY ==
[2024-04-24 13:16] LABS: MANUAL DIFF FLAG NO
[2024-04-24 13:25] LABS: Basophils Percent Auto 0.8 % (0-2); Eosinophils Absolute Auto 0.1 X10*3/uL (0.0-0.4); Eosinophils Percent Auto 2.8 % (0-4); Hemoglobin 10.7 g/dl (12.0-16.0); Imm Gran Abs Auto 0.02 X10*3/uL (0.00-0.03); Imm Gran Pct Auto 0.4 % (0.0-0.4); Lymphocytes Percent Auto 39.8 % (20-40); Mean Corpuscular HGB Conc 31.5 g/dl (31.0-35.0); Mean Corpuscular Hemoglobin 26.8 pg (27.0-33.0); Mean Corpuscular Volume 85.2 fL (80.0-98.0); Mean Platelet Volume 10.3 fL (9.4-12.3); Monocytes Absolute Auto 0.4 X10*3/uL (0.1-1.2); Monocytes Percent Auto 7.7 % (2-11); Neutrophils Absolute Auto 2.4 x10*3/uL (2.0-8.3); Neutrophils Percent Auto 48.5 % (45-73); Platelet Count 250 X10*3/uL (160-400); Red Blood Count 3.99 X10*6/uL (4.20-5.50); Red Cell Distribution Width 14.9 % (11.0-16.0)
[2024-04-24 13:45] LABS: Alanine Aminotransferase 44 U/L (0-31); Albumin Level 3.3 g/dL (3.5-5.0); Alkaline Phosphatase 102 U/L (39-117); Anion Gap 8 (12-20); Aspartate Amino Transferase 26 U/L (5-31); Bilirubin Direct < 0.2 mg/dL (0.0-0.5); Bilirubin Total 0.2 mg/dL (0.0-1.0); Blood Urea Nitrogen 14 mg/dL (9-16); Calcium 7.9 mg/dL (8.4-10.2); Carbon Dioxide 27 mmol/L (22-29); Chloride 107 mmol/L (96-108); Estimated Glomerular Filt Rate > 60; Glucose Random 70 mg/dL (60-115); Potassium 3.9 mmol/L (3.3-5.1); Sodium 138 mmol/L (135-145); Total Protein 6.4 g/dL (6.5-8.0)
[2024-04-24 13:54] LABS: TSH reflex Free T4 2.01 uIU/mL (0.32-4.0)
[2024-04-25 07:48] LABS: Syphilis Screen Nonreactive (Nonreactive)
[2024-04-25 08:06] LABS: Hepatitis A Antibody IgG Nonreactive (Nonreactive); ~Hepatitis A Antibody IgG 0.39 S/CO (0.00-0.99)
[2024-04-25 08:07] LABS: HBS Num1 1.77 mIU/mL (0-7.99); HBsAGNum1 0.35 S/CO (0.00-0.99); HIV AB/AG Nonreactive (Nonreactive); HIV Num 1 0.06 S/CO (0.00-0.99); Hepatitis B Surface Antigen Negative (Negative); ~HepC Num1 0.11 S/CO (0.00-0.79); ~Hepatitis B Surface Antibody NONREACTIVE (Nonreactive); ~Hepatitis C Antibody Nonreactive (Nonreactive)
[2024-04-25 08:17] LABS: HBc Num1 0.16 S/CO (0.00-0.79); Hepatitis B Core Antibody Nonreactive (Nonreactive)
[2024-04-26 13:09] LABS: RPR Rapid Plasma Reagin NON-REACTIVE (NON-REACTIVE)
[2024-04-27 05:44] LABS: TS Negative Control Passed; TS Panel A 1; TS Panel B 0; TS Positive Control Passed; TSpotTB Negative (Negative)
== END 2024-04-24 10:51 | disposition home or self-care (01) ==
LOC: HO.HHCL 10:50
PROVIDERS: Internal Medicine Geriatric Medicine; Registered Nurse; Visit Provider Family Medicine
DX: Z00.00 Encounter for general adult medical examination without abnormal findings (principal); R60.0 Localized edema; F11.20 Opioid dependence, uncomplicated; R53.83 Other fatigue
CPT/HCPCS: 36415; 80053; 80076; 82248; 84443; 85025; 86481; 86592; 86704; 86706; 86708; 86780; 86803; 87340; 87389